=== PATIENT | female | born 1940 | race Caucasian/White ===

== ENCOUNTER 2018-05-20 18:55 | Inpatient (IN) | payer MEDICARE, OTHER ==
[~2018-05-20] VITALS: Ht 165.1 cm; Wt 73.7 kg
[~2018-05-20 18:55] MED LIST: BAYER PM CAPLE1 EACH PO; CALCIUM 600 +1 EAC2 PO; CENTRUM SILVER1 EAC3; CLOPIDOGREL75 MG PO; FOLIC ACID20 MG PO; FUROSEMIDE40 MG PO; GINKGO BILOBA60 MG PO; ISOSORBIDE MONO20 MG PO; METFORMIN HCL500 M2 PO; METOPROLOL SUCC50 MG PO; MIRTAZAPINE15 MG PO; OMEPRAZOLE40 MG PO; OXYBUTYNIN CHLOR5 MG PO; SIMVASTATIN80 MG PO; VITAMIN C1000 MG PO
[2018-05-20 20:34] LABS: BASOPHILS % 0.4 % (0.0-1.0); EOSINOPHILS % 0.1 % (0.0-6.0); HEMATOCRIT 38.6 % (34.2-44.1); HEMOGLOBIN 13.1 g/dL (12.0-16.0); LYMPHOCYTES # (AUTO) 1.2 (1.0-3.2); LYMPHOCYTES % 12.9 % (18.0-39.1); MEAN CORPUSCULAR HEMOGLOBIN 29.2 pg (28-32); MEAN CORPUSCULAR HGB CONC 33.9 g/dL (31-35); MEAN CORPUSCULAR VOLUME 86.2 fL (81-99); MONOCYTES # (AUTO) 0.9 (0.2-0.8); MONOCYTES % 9.8 % (4.4-11.3); NEUTROPHILS # (AUTO) 7.1 (2.1-6.9); NEUTROPHILS % 76.3 % (38.7-80.0); PLATELET COUNT 230 x10e3/uL (140-360); RED BLOOD COUNT 4.48 x10e6/uL (3.6-5.1); RED CELL DISTRIBUTION WIDTH 13.2 % (11.7-14.4)
[2018-05-20 20:45] LABS: ALBUMIN 3.3 g/dL (3.5-5.0); ANION GAP 16.7 mmol/L (8-16); CALCIUM 10.1 mg/dL (8.4-10.2); CREATININE, SERUM 1.51 mg/dL (0.57-1.11); POTASSIUM 4.7 mmol/L (3.5-5.1)
[2018-05-20] MEDS ORDERED: ASPIRIN 81 MG CHEW TAB PO ONE (20:45)
[2018-05-20 20:51] LABS: CREATINE KINASE MB 1.8 ng/mL (0-5.0)
[2018-05-20 20:55] LABS: BILIRUBIN,URINE NEGATIVE (NEGATIVE); CLARITY,URINE SL CLOUDY (CLEAR); COLOR,URINE YELLOW (YELLOW); KETONES,URINE NEGATIVE (NEGATIVE); LEUKOCYTE ESTERASE ,URINE TRACE (NEGATIVE); NITRITE,URINE NEGATIVE (NEGATIVE); PROTEIN,URINE DIPSTICK 2+ (NEGATIVE); URINE UROBILINOGEN 0.2 mg/dL (0.2 - 1)
[2018-05-20 21:10] LABS: BACTERIA,URINE FEW /HPF; RBC,URINE 0-5 /HPF (0-5)
[2018-05-20 21:11] LABS: EPITHELIAL CELLS,URINE RARE /LPF
[2018-05-20 21:40] VITALS: BP 137/67
[2018-05-20 22:19] VITALS: BP 137/67
[2018-05-21] VITALS (19 sets, daily range): BP systolic 117–177; BP diastolic 51–102
[2018-05-21 06:09] LABS: CREATINE KINASE MB 3.2 ng/mL (0-5.0)
--- NOTE | 2018-05-21 06:16 | NUR ---
Left message with Dr. Rhodes about jump in patient's Troponin level. Waiting for callback.
--- NOTE | 2018-05-21 06:20 | NUR ---
Spoke with Dr. Rhodes about patient's elevated troponin. No new orders
[2018-05-21] MEDS ORDERED: DEXTROSE 50% SYRINGE 50 ML IV PRN (06:30)
[2018-05-21 06:34] LABS: CHOL/HDL RATIO 2.2 (3.0-3.6)
[2018-05-21] MEDS: LEVOFLOXACIN 500MG/D5W 100ML 100 ML IV SCH (06:37)
[2018-05-21] MEDS ORDERED: SODIUM CHLORIDE 0.9% 250ML 250 ML ONE (06:38)
[2018-05-21] MEDS ORDERED: METOPROLOL TART50 MG PO (06:57)
[2018-05-21] MEDS ORDERED: LEVAQUIN500 MG PO (06:57)
--- NOTE | 2018-05-21 07:05 | NUR ---
Walking rounds done. Patient is awake and alert x3. POC discussed. Patient made aware she is NPO until next Troponin and inventory assistant sees her. Patient was resistant and voiced she needs to take sips of water constantly. Education provided once more and she agreed. Bed in lowest position, locked, and call wall within reach.
[2018-05-21] MEDS: INSULIN REGULAR, HUMAN 100 UNIT/1 ML 3ML VIAL SQ SCH ×4 (07:30→21:19)
--- NOTE | 2018-05-21 07:39 | History and Physical ---
PRIMARY CARE PHYSICIAN: None. CHIEF COMPLAINT: Chest palpitation. HISTORY OF PRESENT ILLNESS: This is a 77-year-old woman with a history of hypertension, coronary artery disease, now developing chest palpitation for the past 2 days, came to the hospital for further evaluation and management. Patient had mid chest discomfort, shortness of breath, dizziness, all the symptoms have now resolved since the heart rate has been controlled, found to have urinary tract infection. She is admitted for further evaluation and management. PAST MEDICAL HISTORY: Coronary artery disease, status post heart cath, patient has not recovered, she had a stent; chronic kidney disease, stage 3; diabetes mellitus type 2; hypertension; smoker of 4 cigarettes per day; systolic congestive heart failure, left ventricular ejection fraction 20% to 25% in 2016; pneumonia; and atypical chest pain. PAST SURGICAL HISTORY: Cholecystectomy and tonsillectomy. ALLERGIES: PER ELECTRONIC MEDICAL RECORD. FAMILY/SOCIAL HISTORY: Patient is single. No alcohol or illicits. She smokes 4 cigarettes a day. MEDICATIONS: Per electronic medical record. REVIEW OF SYSTEMS: Denies any fever, chills, sweats, nausea, vomiting, diarrhea, headache, dizziness, vision changes, leg pain, back pain, or skin rash. PHYSICAL EXAMINATION: VITAL SIGNS: Have been reviewed. GENERAL APPEARANCE: Tired-appearing woman resting in bed. HEENT: Anicteric. CARDIOVASCULAR: Normal S1 and S2. She has regular heart rhythm. LUNGS: Moderate breath sounds. ABDOMEN: Soft, nontender, nondistended. EXTREMITIES: No edema or calf tenderness. NEUROLOGICAL: Alert and oriented x3. Moving all extremities. SKIN: Dry. PSYCHIATRIC: Normal affect. LABS: Reviewed. MEDICATIONS: Reviewed. ASSESSMENT: This is a 77-year-old woman: 1. New-onset atrial fibrillation. 2. Urinary tract infection. 3. Systolic congestive heart failure, chronic. 4. Hyponatremia. 5. Acute kidney injury in the setting of chronic kidney disease, stage 3. 6. Diabetes mellitus type 2. 7. Coronary artery disease, unknown whether she has a stent. 8. Hypertension. 9. Current smoker. 10. Elevated troponins. PLAN: 1. Heart rate currently controlled. Will use metoprolol tartrate b.i.d. 75 mg. 2. Treat urinary tract infection with Levaquin. 3. Hold Lasix. 4. Obtain third troponin at 9 a.m. 5. Cardiology consultation. May need left heart catheterization as patient does have history of systolic congestive heart failure, left ventricular ejection fraction 20% in 2016. Will follow up echocardiogram. 6. Cigarette cessation. Counseling provided. 7. Keep patient n.p.o. at this time. 8. Start Lovenox b.i.d. treatment and will plan to transition home with Eliemily. 9. Continue Plavix, aspirin, and other medications. 10. Prophylaxis. Will use PPI while on anticoagulation. 11. Disposition. Follow up troponin at 9 a.m. Follow up cardiology consultation. May need left heart catheterization in the setting of history of systolic congestive heart failure and will follow up with 2D echocardiogram. Job#: [id number]
[2018-05-21] MEDS: DIPHENHYDRAMINE PO SCH (08:28)
[2018-05-21] MEDS: ASPIRIN PO SCH (08:28)
[2018-05-21] MEDS: METOPROLOL TARTRATE 50 MG TAB PO SCH ×2 (08:48→21:25)
[2018-05-21] MEDS: PANTOPRAZOLE SOD 40 MG TABEC PO SCH ×2 (08:48→21:22)
[2018-05-21] MEDS: FOLIC ACID 1 MG TAB PO SCH (08:48)
[2018-05-21] MEDS: CLOPIDOGREL BISULFATE 75 MG TAB PO SCH (08:48)
[2018-05-21] MEDS: ASCORBIC ACID 500 MG TAB PO SCH (08:48)
[2018-05-21] MEDS ORDERED: DIPHENHYDRAMINE PO SCH (09:00)
[2018-05-21] MEDS ORDERED: NON-FORMULARY MEDICATION (Ascorbic Acid (Vitamin C) 1,000 MG) PO SCH (09:00)
[2018-05-21] MEDS ORDERED: ASPIRIN PO SCH (09:00)
[2018-05-21] MEDS ORDERED: PANTOPRAZOLE SOD 40 MG TABEC PO SCH (09:00)
[2018-05-21] MEDS ORDERED: ENOXAPARIN INJ 80 MG/0.8 ML SYR SC SCH (09:00)
[2018-05-21] MEDS ORDERED: FOLIC ACID PO SCH (09:00)
--- NOTE | 2018-05-21 09:05 | NUR ---
SOCIAL WORK INITIAL ASSESSMENT Emergency Services Professional to bedside to discuss plan of care with patient/family. CM/SW role and care transitions discussed. Anticipated discharge plan discussed along with duration of care. CM/SW discussed patients right to make decisions in care. CM/SW work hours given. Patient lives: IN [facility] Admit/Transfer: VIA ED POA/Emergency contact: FACILITY [phone] Current/Previous Home Health: [facility] PCP/Follow-up Care: JACKIE Current/Previous DME: [employer] Other Services: NONE Employment Status: RETIRED Areas of Concerns: NONE Referral Needs: NONE Education Needs: NONE IMM/CARRASQUILLO given and signed (if applicable): CARRASQUILLO Goal for discharge: RETURN HOME TO [facility] CM/SW left business card at the bedside with contact information. Name and number was also written on the patients whiteboard. Patient verbalized understanding of discussion. CM will follow-up with ongoing discharge and transition of care needs.
--- NOTE | 2018-05-21 09:07 | NUR ---
POST DISCHARGE STATUS FORM FILED IN CHART RETURNING TO CORRECTION UNDER MEDICAID
--- NOTE | 2018-05-21 10:25 | NUR ---
Dr. Rhodes paged regarding Troponin 0.72. Awaiting call back
[2018-05-21 11:16] LABS: CREATININE, SERUM 1.11 mg/dL (0.57-1.11)
--- NOTE | 2018-05-21 12:30 | NUR ---
Dr. Belinda Thao paged regarding iodine allergy, awaiting call back
[2018-05-21] MEDS ORDERED: DIPHENHYDRAMINE HCL INJ 50 MG/ML VIAL IV ONE (13:30)
[2018-05-21] MEDS ORDERED: METHYLPREDNISOLONE SOD SUCC 125 MG/2ML VIAL IV ONE (13:30)
[2018-05-21] MEDS ORDERED: DIPHENHYDRAMINE HCL INJ 50 MG/ML VIAL IV PRN ×2 (13:30→13:45)
[2018-05-21] MEDS ORDERED: VERAPAMIL HCL 2.5 MG/ML 2 ML VIAL ONE (14:57)
[2018-05-21] MEDS ORDERED: LIDOCAINE HCL 2% LOCAL 20 ML VIAL ONE (14:57)
[2018-05-21] MEDS ORDERED: FENTANYL CITRATE/PF 100MCG/2 ML INJ ONE (14:57)
[2018-05-21] MEDS ORDERED: MIDAZOLAM HCL 2 MG/2 ML VIAL ONE (14:57)
[2018-05-21] MEDS ORDERED: SODIUM CHLORIDE 0.9% 1000ML 1,000 ML ONE (14:58)
[2018-05-21] MEDS ORDERED: HEPARIN SOD/SOD CHLORIDE 2,000 ML ONE (14:58)
[2018-05-21] MEDS ORDERED: IOPAMIDOL 370 MG/ML 200 ML INFUS..BTL INJ ONE (14:58)
[2018-05-21] MEDS ORDERED: DIPHENHYDRAMINE HCL INJ 50 MG/ML VIAL ONE (14:59)
--- NOTE | 2018-05-21 15:07 | NUR ---
Patient off unit to prosthetic lab technician with cath nurse via bed.
[2018-05-21 15:26] LABS: CREATINE KINASE MB 2.4 ng/mL (0-5.0)
--- NOTE | 2018-05-21 16:20 | NUR ---
Pt moved from procedural room to PACU 20. Placed on bedside telemetry. IV site intact and healthy with 0.9%ns at 100ml/hr via iMed pump. Right radial with TR band 12ml air band. PT educated on ICU status, and answered questions related to procedure. Pt A&O x 3 , respiration even and unlabored with 2L/Nc, VS WNL. No acute distress or notable complications. pt denies sob, cp, nv, or need. HOB elevated to comfort - cgf
--- NOTE | 2018-05-21 17:20 | NUR ---
pt w/ urgency to void. Refusing to use bedpan or fracture mccauley. Pt oob to bedside with assist . voided clear yellow urine. Assisted up with assist from commode. no acute distress or need. no sob.
--- NOTE | 2018-05-21 17:45 | NUR ---
TR band remains intact. removed 2ml from band, reduced to 10ml to 12 ml. pt verbalizes teaching, call light at side.
--- NOTE | 2018-05-21 18:00 | NUR ---
TR band remains intact. removed 2ml from band, reduced to 8ml from 10 ml. pt verbalizes teaching, call light at side. Evening food tray delivered and setup for patient. No acute or obvious distress at this time.
--- NOTE | 2018-05-21 18:15 | NUR ---
TR band remains intact. removed 2ml from band, reduced to 6ml from 8 ml. pt verbalizes teaching, call light at side. Pt continues to consume evening meal with earnest. No acute or obvious distress at this time.
--- NOTE | 2018-05-21 18:30 | NUR ---
TR band remains intact. removed 2ml from band, reduced to 4ml from 6 ml. pt completed evening meal, tray excused. pt denies need at this time. No acute or obvious distress at this time.
--- NOTE | 2018-05-21 18:45 | NUR ---
TR band remains intact. removed 2ml from band, reduced to 2ml from 4 ml. + neurovascular functions remains to right hand. No acute or obvious distress at this time.
--- NOTE | 2018-05-21 19:00 | NUR ---
TR band removed. removed 2ml from band, reduced to zero. + neurovascular functions remains to right hand. No acute or obvious distress at this time. tegaderm dressing applied. Review of TR post education. Pt verbalizes understanding not to use right hand for weight bearing, limited use for short term.
--- NOTE | 2018-05-21 19:30 | NUR ---
Report provided to Germaine RN. Review of orders, shift events, procedural findings and mediations to start. VS trend, TR band status, and out standing orders. Pt resting watching TV, w/o gross distress. Respirations even and unlabored. VS trend WNL. right wrist contiues to be neurovascular intact and pt able to repeat back education. Questions answered to receiving nurse satisfaction. Transfer pending room clean. Continue to monitor patient. - cgf
--- NOTE | 2018-05-21 19:43 | Consultation ---
DATE OF CONSULTATION: May 21, 2018 CARDIOLOGY CONSULTATION REASON FOR CONSULTATION: Chest pain. CHIEF COMPLAINT: Chest pain and palpitations. HISTORY OF PRESENT ILLNESS: Patient is a 77-year-old female with history of CAD, status post stents many years ago, hypertension, hyperlipidemia, peripheral arterial disease, possible dementia, who presents with AFib with RVR which has now resolved since being started on metoprolol. Patient continued to experience some chest pressure with elevated troponin of 0.7, so underwent coronary angiography given her risk factors and small non-STEMI earlier today. Coronary angiography showed 3-vessel severe CAD. Echocardiogram showed preserved left ventricular ejection fraction with no severe valvular abnormalities. REVIEW OF SYSTEMS: As above, otherwise negative. PAST MEDICAL HISTORY 1. CAD. 2. Hypertension. 3. Hyperlipidemia. 4. Peripheral arterial disease. SOCIAL HISTORY: Patient lives in a care facility. Does not smoke, drink or abuse drugs. FAMILY HISTORY: Noncontributory. OUTPATIENT MEDICATIONS: Reviewed. OBJECTIVE VITAL SIGNS: Temperature 97.9, pulse 70, respiratory rate 18, blood pressure 156/102, satting 98% on room air. GENERAL: Elderly frail white female, no acute distress. CARDIOVASCULAR: Regular rate and rhythm. No murmurs, rubs, or gallops. RESPIRATORY: Clear to auscultation bilaterally. Decreased breath sounds at the bases. ABDOMEN: Soft, nontender, nondistended. NEURO AND PSYCH: Alert and oriented to person, place, and time. Normal affect. LABORATORY DATA: Reviewed. Notable for troponin of 0.72. INPATIENT MEDICATIONS: Reviewed. LABORATORY DATA: Reviewed. IMAGING DATA: Reviewed. TELEMETRY DATA: Reviewed, shows AFib with RVR yesterday, now converted to normal sinus rhythm. Echocardiogram reviewed, shows normal LV size with LV ejection fraction of 50% to 55%. ASSESSMENT 1. Severe multivessel coronary artery disease. 2. Ura-VP-gjxajbbcr myocardial infarction. 3. Atrial fibrillation with rapid ventricular rate. 4. History of coronary artery disease, status post percutaneous coronary intervention to the left anterior descending in the past. 5. Peripheral arterial disease. PLAN: Discussed with patient after the cath regarding possible coronary artery bypass grafting versus PCI. Patient wants to take her time and consider the options. Also discuss with Dr. Connolly. He will have further discussion with the patient tomorrow. If patient is agreeable for CABG, will discuss transfer to a different facility. Continue heparin drip and IV nitrate as needed for blood pressure control. Transferred to ICU given severe 3-vessel CAD. Thank you for this consult. Will continue to follow. Job#: [id number] SAUL
--- NOTE | 2018-05-21 20:08 | NUR ---
Pt transferred to room 193 - ICU. ICU ready to received. Pt transported on monitor and heparin bag sent with patient.
[2018-05-21 20:41] LABS: BASOPHILS % 0.1 % (0.0-1.0); HEMATOCRIT 36.8 % (34.2-44.1); HEMOGLOBIN 12.7 g/dL (12.0-16.0); LYMPHOCYTES # (AUTO) 0.5 (1.0-3.2); LYMPHOCYTES % 5.6 % (18.0-39.1); MEAN CORPUSCULAR HEMOGLOBIN 29.7 pg (28-32); MEAN CORPUSCULAR HGB CONC 34.5 g/dL (31-35); MEAN CORPUSCULAR VOLUME 86.2 fL (81-99); MONOCYTES # (AUTO) 0.1 (0.2-0.8); MONOCYTES % 0.9 % (4.4-11.3); NEUTROPHILS % 92.9 % (38.7-80.0); PLATELET COUNT 172 x10e3/uL (140-360); RED BLOOD COUNT 4.27 x10e6/uL (3.6-5.1); RED CELL DISTRIBUTION WIDTH 12.9 % (11.7-14.4)
[2018-05-21 20:51] LABS: INR 0.95; PROTHROMBIN TIME 13.5 seconds (11.9-14.5)
[2018-05-21 20:52] LABS: PARTIAL THROMBOPLASTIN TIME 32.7 seconds (23.8-35.5)
[2018-05-21 20:56] LABS: ANION GAP 14.3 mmol/L (8-16); CALCIUM 9.1 mg/dL (8.4-10.2); CREATININE, SERUM 1.38 mg/dL (0.57-1.11); POTASSIUM 4.3 mmol/L (3.5-5.1)
[2018-05-21] MEDS: SIMVASTATIN 80 MG TAB PO SCH (21:22)
[2018-05-21] MEDS: HEPARIN 25,000 UNIT/D5W 250ML 250 ML IV SCH (21:26)
[2018-05-21] MEDS: SODIUM CHLORIDE 0.9% 1000ML 1,000 ML IV SCH (22:15)
[2018-05-21] MEDS: OXYBUTYNIN CHLORIDE XL 5 MG TAB PO SCH (23:09)
[2018-05-21] MEDS: MIRTAZAPINE 15 MG TAB PO SCH (23:09)
[2018-05-21] MEDS: ACETAMINOPHEN 325 MG TAB PO PRN (23:10)
[2018-05-22] VITALS (29 sets, daily range): BP systolic 79–171; BP diastolic 46–86
[2018-05-22] MEDS: SODIUM CHLORIDE 0.9% 1000ML 1,000 ML IV SCH (00:45)
[2018-05-22 04:06] LABS: BASOPHILS % 0.2 % (0.0-1.0); HEMATOCRIT 35.5 % (34.2-44.1); HEMOGLOBIN 12.4 g/dL (12.0-16.0); LYMPHOCYTES # (AUTO) 0.8 (1.0-3.2); LYMPHOCYTES % 8.1 % (18.0-39.1); MEAN CORPUSCULAR HEMOGLOBIN 29.7 pg (28-32); MEAN CORPUSCULAR HGB CONC 34.9 g/dL (31-35); MEAN CORPUSCULAR VOLUME 84.9 fL (81-99); MONOCYTES # (AUTO) 0.6 (0.2-0.8); MONOCYTES % 5.9 % (4.4-11.3); NEUTROPHILS % 85.4 % (38.7-80.0); PLATELET COUNT 197 x10e3/uL (140-360); RED BLOOD COUNT 4.18 x10e6/uL (3.6-5.1); RED CELL DISTRIBUTION WIDTH 12.8 % (11.7-14.4)
[2018-05-22 04:25] LABS: ANION GAP 17.2 mmol/L (8-16); CALCIUM 8.9 mg/dL (8.4-10.2); CREATININE, SERUM 1.13 mg/dL (0.57-1.11); MAGNESIUM 1.5 MG/DL (1.3-2.1); POTASSIUM 4.2 mmol/L (3.5-5.1)
[2018-05-22] MEDS: LEVOFLOXACIN 500MG/D5W 100ML 100 ML IV SCH (06:09)
--- NOTE | 2018-05-22 06:21 | NUR ---
IM- progress note O/N; severe 3V CAD REVIEW OF SYSTEMS: Denies any fever, chills, sweats, nausea, vomiting, diarrhea, headache, dizziness, vision changes, leg pain, back pain, or skin rash. PHYSICAL EXAMINATION: VITAL SIGNS: Have been reviewed. GENERAL APPEARANCE: Tired-appearing woman resting in bed. HEENT: Anicteric. CARDIOVASCULAR: Normal S1 and S2. She has regular heart rhythm. LUNGS: Moderate breath sounds. ABDOMEN: Soft, nontender, nondistended. EXTREMITIES: No edema or calf tenderness. NEUROLOGICAL: Alert and oriented x3. Moving all extremities. SKIN: Dry. PSYCHIATRIC: Normal affect. LABS: Reviewed. MEDICATIONS: Reviewed. ASSESSMENT: This is a 77-year-old woman: 1. New-onset atrial fibrillation. 2. Urinary tract infection. 3. Systolic congestive heart failure, chronic. 4. Hyponatremia. 5. Acute kidney injury in the setting of chronic kidney disease, stage 3. 6. Diabetes mellitus type 2. 7. Coronary artery disease, unknown whether she has a stent. 8. Hypertension. 9. Current smoker. 10. Elevated troponins. PLAN: 1. Heart rate currently controlled. Will use metoprolol tartrate b.i.d. 75 mg. 2. Treat urinary tract infection with Levaquin. 3. Hold Lasix. 4. Obtain third troponin at 9 a.m. 5. Cardiology consultation. May need left heart catheterization as patient does have history of systolic congestive heart failure, left ventricular ejection fraction 20% in 2016. Will follow up echocardiogram. 6. Cigarette cessation. Counseling provided. 7. Keep patient n.p.o. at this time. 8. Start Lovenox b.i.d. treatment and will plan to transition home with Morenita. 9. Continue Plavix, aspirin, and other medications. 10. Prophylaxis. Will use PPI while on anticoagulation. 11. Disposition. Follow up troponin at 9 a.m. Follow up cardiology consultation. May need left heart catheterization in the setting of history of systolic congestive heart failure and will follow up with 2D echocardiogram. 05/22 severe 3V CAD on [facility]. NSTEMI; CABG recommended- further discussions with pt. on heparin gtt; Pt agreeable; Transfer to [facility] for mgmt; Does have CKD3 cct>35mins.
[2018-05-22] MEDS: INSULIN REGULAR, HUMAN 100 UNIT/1 ML 3ML VIAL SQ SCH ×4 (07:30→23:00)
--- NOTE | 2018-05-22 08:50 | NUR ---
called Dr. Wahl office for new patient consult, answering service paged . waiting on return call. will continue to monitor
[2018-05-22] MEDS: ASCORBIC ACID 500 MG TAB PO SCH (09:00)
[2018-05-22] MEDS: DIPHENHYDRAMINE PO SCH (09:00)
[2018-05-22] MEDS: FOLIC ACID 1 MG TAB PO SCH (09:00)
[2018-05-22] MEDS: ASPIRIN PO SCH (09:00)
[2018-05-22] MEDS: PANTOPRAZOLE SOD 40 MG TABEC PO SCH ×2 (09:00→18:37)
[2018-05-22] MEDS: OXYBUTYNIN CHLORIDE XL 5 MG TAB PO SCH ×2 (09:00→22:33)
[2018-05-22] MEDS: METOPROLOL TARTRATE 50 MG TAB PO SCH ×2 (09:00→18:36)
[2018-05-22] MEDS: CLOPIDOGREL BISULFATE 75 MG TAB PO SCH (09:00)
--- NOTE | 2018-05-22 09:20 | NUR ---
spoke w/Dr. Wahl nurse, was told to hold Plavix dose until confirmation from Dr. Reaves. will continue to monitor
--- NOTE | 2018-05-22 09:38 | NUR ---
PT PROVIDED CHOICE. AGREED TO [facility]. CHOICE LETTER SIGNED AND COPY TO CHART AND COPY TO PT. CALL MADE TO [facility] @ [phone]. SPOKE W MARISA ARORA. REQUESTED ICU BED. WILL FAX H&P, CARDIOLOGY CONSULT, LAST PROGRESS NOTE TO [phone]. MOT INITIATED Addendum: 05/22/18 at 1516 by Ladonna Baldwin CM CALLS RECEIVED FROM MARISA Gallo [facility] TRANSF[facility]: 10:46 INQUIRED ABOUT EMERGENCY CONTACT. INFORMED SISTER LIVES W HER AT THE [facility] AND IS NON VERBAL. SISTER HAS A SON, BUT NOT INVOLVED W AUNT. PT STATES THERE ARE NO OTHER LIVING RELATIVES 113PM REQUESTED MORE NOTES FOR THE PT. INFORMED I FAXED ALL INFO AVAILABLE. STATES THE INITIAL NOTE SAYS PT WAS CONFUSED AND QUESTIONED IN THE PT WAS CAPABLE OF MAKING DECISIONS FOR HERSELF. INFORMED PT WAS ALERT AND ORIENTED X3. 133PM ASKED IF THERE WAS AN ACCEPTING MD. NONE PER DR. GANDARA' NOTE. 231PM DR. GANDARA PHONE # GIVEN TO TRANSFER CENTER FOR DOC TO DOC
--- NOTE | 2018-05-22 16:18 | Progress Note ---
DATE: CARDIOLOGY PROGRESS NOTE SUBJECTIVE: No major events overnight. OBJECTIVE VITAL SIGNS: Temperature is afebrile, pulse 74, respiratory rate 23, blood pressure 129/49, and sats 99% on room air. GENERAL: Elderly white female, thin. CARDIOVASCULAR: Regular rate and rhythm. No murmurs, rubs or gallops. Palpable carotid pulses. Palpable radial pulses. LUNGS: Clear to auscultation anteriorly. ABDOMEN: Thin, soft and nontender. No masses. NEURO AND PSYCH: Alert and oriented to person, place and time. Normal affect. INPATIENT MEDICATIONS: Reviewed. IMAGING DATA: Reviewed. Telemetry data reviewed. Shows normal sinus rhythm. ASSESSMENT AND PLAN 1. Severe multivessel coronary artery disease: Pending coronary artery bypass graft surgery. 2. Csv-YD-vveapel elevation myocardial infarction. 3. Atrial fibrillation with rapid ventricular response, now resolved. 4. History of coronary artery disease: Status post percutaneous coronary intervention to the left anterior descending in the past. 5. Peripheral arterial disease. PLAN: Patient is awaiting evaluation by Dr. Reaves. Potential transfer for high coronary artery bypass graft. Continue IV heparin in the meantime. Otherwise, she is stable from a cardiovascular standpoint. Thank you for this consult. Will continue to follow. Job#: [id number] ORIANA
[2018-05-22] MEDS: HEPARIN 25,000 UNIT/D5W 250ML 250 ML IV SCH (18:00)
--- NOTE | 2018-05-22 20:35 | NUR ---
MD Rhodes called, stated that he spoke to [facility] CT surgeon Dr. Kathia Granda, but that pt still needs a bed and may need an attending or assembly adjuster. Called subhash Sanders, stated that [facility]'s transfer center has not yet notified her of a bed.
[2018-05-22] MEDS: SIMVASTATIN 80 MG TAB PO SCH (22:33)
[2018-05-22] MEDS: ACETAMINOPHEN 325 MG TAB PO PRN (22:34)
[2018-05-22] MEDS: MIRTAZAPINE 15 MG TAB PO SCH (22:48)
--- NOTE | 2018-05-22 23:27 | NUR ---
Pt's HS CBG taken late because of pt's refusal of needles, allowed blood draw for heparin gtt protocol, CBG taken from butterfly needle. Pt initially refused insulin, stated that she does not take insulin at detention, and that she once saw a doctor kill a patient with insulin. Pt reminded that many patients who take oral DM meds at home are given insulin in hospital for tighter BG control, and that hyperglycemia worsens infections. Reminded pt that she has a UTI and severe CAD requiring surgery, and that hyperglycemia would worsen her current conditions. Reminded pt that she accepted insulin for BG in 300s last evening, pt stated that she does not recall and that she was not notified that she was hyperglycemic and received an injection. Pt informed that her blood sugar was 204 and she was to receive 6 units of regular insulin. Pt stated that she will accept the insulin if it improves her conditions, declined 0100 CBG check because she did not want to be awakened. Will continue to monitor
[2018-05-23] VITALS (25 sets, daily range): BP systolic 123–185; BP diastolic 46–105
[2018-05-23] MEDS: HEPARIN 25,000 UNIT/D5W 250ML 250 ML IV SCH ×2 (02:46→23:18)
[2018-05-23 04:53] LABS: BASOPHILS # (AUTO) 0.1 (0.0-0.1); BASOPHILS % 0.7 % (0.0-1.0); EOSINOPHILS % 0.3 % (0.0-6.0); HEMATOCRIT 32.6 % (34.2-44.1); HEMOGLOBIN 11.2 g/dL (12.0-16.0); LYMPHOCYTES # (AUTO) 1.6 (1.0-3.2); LYMPHOCYTES % 21.2 % (18.0-39.1); MEAN CORPUSCULAR HEMOGLOBIN 29.6 pg (28-32); MEAN CORPUSCULAR HGB CONC 34.4 g/dL (31-35); MEAN CORPUSCULAR VOLUME 86.2 fL (81-99); MONOCYTES # (AUTO) 0.7 (0.2-0.8); MONOCYTES % 9.6 % (4.4-11.3); NEUTROPHILS # (AUTO) 5.2 (2.1-6.9); NEUTROPHILS % 67.5 % (38.7-80.0); PLATELET COUNT 182 x10e3/uL (140-360); RED BLOOD COUNT 3.78 x10e6/uL (3.6-5.1)
[2018-05-23 05:23] LABS: ANION GAP 12.9 mmol/L (8-16); CALCIUM 8.5 mg/dL (8.4-10.2); CREATININE, SERUM 1.01 mg/dL (0.57-1.11); POTASSIUM 3.9 mmol/L (3.5-5.1)
[2018-05-23 05:26] LABS: INR 1.02; PROTHROMBIN TIME 14.3 seconds (11.9-14.5)
[2018-05-23] MEDS: LEVOFLOXACIN 500MG/D5W 100ML 100 ML IV SCH (06:06)
--- NOTE | 2018-05-23 07:27 | NUR ---
IM- progress note O/N; severe 3V CAD REVIEW OF SYSTEMS: Denies any fever, chills, sweats, nausea, vomiting, diarrhea, headache, dizziness, vision changes, leg pain, back pain, or skin rash. PHYSICAL EXAMINATION: VITAL SIGNS: Have been reviewed. GENERAL APPEARANCE: Tired-appearing woman resting in bed. HEENT: Anicteric. CARDIOVASCULAR: Normal S1 and S2. She has regular heart rhythm. LUNGS: Moderate breath sounds. ABDOMEN: Soft, nontender, nondistended. EXTREMITIES: No edema or calf tenderness. NEUROLOGICAL: Alert and oriented x3. Moving all extremities. SKIN: Dry. PSYCHIATRIC: Normal affect. LABS: Reviewed. MEDICATIONS: Reviewed. ASSESSMENT: This is a 77-year-old woman: 1. New-onset atrial fibrillation. 2. Urinary tract infection. 3. Systolic congestive heart failure, chronic. 4. Hyponatremia. 5. Acute kidney injury in the setting of chronic kidney disease, stage 3. 6. Diabetes mellitus type 2. 7. Coronary artery disease, unknown whether she has a stent. 8. Hypertension. 9. Current smoker. 10. Elevated troponins. PLAN: 1. Heart rate currently controlled. Will use metoprolol tartrate b.i.d. 75 mg. 2. Treat urinary tract infection with Levaquin. 3. Hold Lasix. 4. Obtain third troponin at 9 a.m. 5. Cardiology consultation. May need left heart catheterization as patient does have history of systolic congestive heart failure, left ventricular ejection fraction 20% in 2016. Will follow up echocardiogram. 6. Cigarette cessation. Counseling provided. 7. Keep patient n.p.o. at this time. 8. Start Lovenox b.i.d. treatment and will plan to transition home with Morenita. 9. Continue Plavix, aspirin, and other medications. 10. Prophylaxis. Will use PPI while on anticoagulation. 11. Disposition. Follow up troponin at 9 a.m. Follow up cardiology consultation. May need left heart catheterization in the setting of history of systolic congestive heart failure and will follow up with 2D echocardiogram. 05/22 severe 3V CAD on [facility]. NSTEMI; CABG recommended- further discussions with pt. on heparin gtt; Pt agreeable; [facility]; Does have CKD3 cct>35mins. 05/23 d/c planning; Edvin Muniz MD, PhD.
[2018-05-23] MEDS: INSULIN REGULAR, HUMAN 100 UNIT/1 ML 3ML VIAL SQ SCH ×4 (07:30→21:00)
[2018-05-23] MEDS: ASPIRIN PO SCH (08:20)
[2018-05-23] MEDS: DIPHENHYDRAMINE PO SCH (08:20)
[2018-05-23] MEDS: METOPROLOL TARTRATE 50 MG TAB PO SCH ×2 (08:54→18:08)
[2018-05-23] MEDS: FOLIC ACID 1 MG TAB PO SCH (08:54)
[2018-05-23] MEDS: ASCORBIC ACID 500 MG TAB PO SCH (08:59)
[2018-05-23] MEDS: PANTOPRAZOLE SOD 40 MG TABEC PO SCH ×2 (08:59→18:08)
[2018-05-23] MEDS: CLOPIDOGREL BISULFATE 75 MG TAB PO SCH (08:59)
[2018-05-23] MEDS: ACETAMINOPHEN 325 MG TAB PO PRN ×3 (09:01→21:26)
[2018-05-23] MEDS: SODIUM CHLORIDE 0.9% 1000ML 1,000 ML IV SCH (11:29)
--- NOTE | 2018-05-23 11:36 | Progress Note ---
DATE: CARDIOLOGY PROGRESS NOTE SUBJECTIVE: Patient is without any complaints. She denies any chest pain, shortness of breath, palpitations, or dizziness. OBJECTIVE VITAL SIGNS: Temperature 98.0, pulse 69, respiratory rate 19, blood pressure 160/60, oxygen saturation 99% on room air. GENERAL: Alert and oriented x 3, resting comfortably in bed. Does not appear to be in any acute distress. NECK: Supple. No JVD noted. CARDIOVASCULAR: Regular rate and rhythm. Normal S1, S2. A 2/6 systolic ejection murmur present. LUNGS: Diminished breath sounds anterior lower lobes. Otherwise, clear to auscultation throughout. ABDOMEN: Soft, nontender. EXTREMITIES: Lower extremities, trace edema bilaterally and 2+ pedal pulses. CARDIOVASCULAR MEDICATIONS 1. Metoprolol 100 mg p.o. b.i.d. 2. Heparin IV titrate. 3. Simvastatin 80 p.o. h.s. 4. Plavix 75 p.o. daily. 5. Aspirin 81 p.o. daily. LABS: WBC 7.63, hemoglobin 11.1, hematocrit 32.6, platelets 182. Sodium 133, potassium 3.9, BUN 21, creatinine 1.01. ASSESSMENT 1. Severe multivessel coronary artery disease, pending coronary artery bypass graft surgery. 2. Non-ST elevation myocardial infarction. 3. Atrial fibrillation with rapid ventricular response, now she is in sinus rhythm. 4. History of coronary artery disease, status post percutaneous coronary intervention of the left anterior descending in the past. 5. Peripheral arterial disease. PLAN: Awaiting evaluation and consultation with Dr. Reaves, cardiovascular surgeon. Potential transfer for coronary artery bypass graft. Continue the above-listed cardiac medications at this time. Patient remains to be in a stable condition without any complaints at this time. Dictated by: MAHESH Titus. Job#: [id number] SONIDO
[2018-05-23] MEDS ORDERED: GUAIFENESIN/DEXTROMETHORPHAN LIQD 5 ML UDC NG SCH ×2 (16:00→20:00)
[2018-05-23] MEDS ORDERED: LABETALOL HCL 5 MG/ML 20ML VIAL IV PRN (20:15)
[2018-05-23] MEDS ORDERED: DIPHENHYDRAMINE HCL 25 MG CAP PO PRN (20:15)
[2018-05-23] MEDS ORDERED: OYST-CAL-D 500MG TABLET PO SCH (21:00)
[2018-05-23] MEDS ORDERED: OXYBUTYNIN CHLORIDE XL 5 MG TAB PO SCH (21:00)
[2018-05-23] MEDS ORDERED: MELATONIN 3 MG TAB PO SCH (21:00)
[2018-05-23] MEDS ORDERED: SALINE 0.65% NAS SOLN 1 SPRAY BTL PRN (21:00)
[2018-05-23] MEDS ORDERED: CHOLECALCIFEROL 1,000 UNIT TAB PO SCH (21:00)
[2018-05-23] MEDS: SIMVASTATIN 80 MG TAB PO SCH (21:25)
[2018-05-23] MEDS: MIRTAZAPINE 15 MG TAB PO SCH (21:25)
--- NOTE | 2018-05-23 22:10 | NUR ---
Report called to Massiel Raphael RN at [facility] in the [facility] (Pt to go to CCU 6 South 2 Room 19), . House sup notified. According to [facility]' Executive Cyber Leader BEAR Das ([phone], FAX [phone]), Pt will be received by Dr. Dennis Berg as attending, and Dr. Kathia Granda as CT surgeon.
--- NOTE | 2018-05-23 23:20 | NUR ---
EMS came to take pt to [facility]. Pt denies pain, SOB, NVD, dizziness. Image disk, walker, and shoes sent with pt, heparin gtt transferred to EMS pump.
--- NOTE | 2018-05-23 23:22 | NUR ---
Update and notification of latest VS called to Massiel Raphael RN
== END 2018-05-23 23:31 | disposition short-term general hospital (02) | DRG 281 ==
LOC: ER 18:55 → INTOOBSV 20:58 → ERHOLD 20:58 → IMCU 21:38 → ICU 05-21 20:17 → OBSVTOIN 05-22 06:22
PROVIDERS: ADMIT Internal Medicine; ATTEND Internal Medicine
PROC: 4A023N7 Measurement of Cardiac Sampling and Pressure, Left Heart, Percutaneous Approach (ICD-10-PCS; principal; 2018-05-22)
PROC: B2111ZZ Fluoroscopy of Multiple Coronary Arteries using Low Osmolar Contrast (ICD-10-PCS; 2018-05-22)
DX: I21.4 Non-ST elevation (NSTEMI) myocardial infarction (principal); I13.0 Hypertensive heart and chronic kidney disease with heart failure and stage 1 through stage 4 chronic kidney disease, or unspecified chronic kidney disease; I50.22 Chronic systolic (congestive) heart failure; N17.9 Acute kidney failure, unspecified; E87.1 Hypo-osmolality and hyponatremia; N39.0 Urinary tract infection, site not specified; E11.22 Type 2 diabetes mellitus with diabetic chronic kidney disease; N18.3 Chronic kidney disease, stage 3 (moderate); Z79.4 Long term (current) use of insulin; I25.10 Atherosclerotic heart disease of native coronary artery without angina pectoris; Z95.5 Presence of coronary angioplasty implant and graft; F17.210 Nicotine dependence, cigarettes, uncomplicated; I48.91 Unspecified atrial fibrillation; E11.42 Type 2 diabetes mellitus with diabetic polyneuropathy; F03.90 Unspecified dementia, unspecified severity, without behavioral disturbance, psychotic disturbance, mood disturbance, and anxiety; E78.5 Hyperlipidemia, unspecified
CPT/HCPCS: 36415; 80048; 80053; 80061; 81001; 82150; 82550; 82553; 82565; 82948; 83036; 83690; 83735; 84443; 84484; 84520; 85025; 85610; 85730; 87086; 87186; 93005; 93306; 93454; 93880; 96366; 97139; 99284; G0378; J1200; J1650; J1956; J2001; J2250; J2930; J7030; J7050; Q9967